=== PATIENT | female | born 1940 | race Asian ===

== ENCOUNTER 2017-07-11 08:17 | Emergency (ER) | payer BC, MEDICARE ==
[2017-07-11 08:41] VITALS: BP 174/88
--- NOTE | 2017-07-11 08:53 | Emergency Department Report ---
HPI - General Chief Complaint: Fall Time Seen by Provider: 07/11/17 08:44 - HPI HPI: 76-year-old female presents to the emergency department by EMS from her ECF at [facility] after having a ground-level fall. Unknown if the fall was witnessed or if there was any loss of consciousness. The patient is currently awake and a by mouth 1. She has history of Alzheimer's dementia, hypertension. She is a poor historian secondary to her dementia. She has a visible hematoma and abrasion over the left eye. Patient herself currently has no complaints and is not aware that she had a fall. Her medication list includes Plavix but no blood thinners. ED Past Medical Hx - Past Medical History Previous Medical History?: Yes Hx Hypertension: Yes Hx Dementia: Yes (Alzheimer's) Additional medical history: Diverticulitis - Surgical History Past Surgical History?: Yes Additional Surgical History: ANNA - Social History Smoking Status: Never Smoker Substance Use Type: None - Medications Home Medications: Home Medications Medication Instructions Recorded Confirmed Last Taken Type Acetaminophen [Tylenol] 500 mg PO Q6HR 08/18/15 08/18/15 Unknown History Aspirin [Aspirin BABY CHEW TAB] 81 mg PO QDAY 08/18/15 08/18/15 Unknown History Cholecalciferol (Vitamin D3) 1,000 unit PO DAILY 08/18/15 08/18/15 Unknown History [Vitamin D-3] Clopidogrel [Plavix] 75 mg PO QDAY 08/18/15 08/18/15 Unknown History Donepezil [Aricept] 10 mg PO QDAY 08/18/15 08/18/15 Unknown History Lisinopril [Zestril TAB] 10 mg PO QDAY 08/18/15 08/18/15 Unknown History Atenolol [Tenormin] 50 mg PO DAILY #30 tablet 08/27/15 Unknown Rx AtorvaSTATin [Lipitor] 20 mg PO QHS #30 tablet 08/27/15 Unknown Rx Bisacodyl [Dulcolax suppos] 10 mg NV QDAY PRN #30 supp.rect 08/27/15 Unknown Rx Calc Carb/Vit D 500 mg-200 Uni 2 each PO BID #30 tablet 08/27/15 Unknown Rx [Oysco D 500 mg-200 Unit] Donepezil [Aricept] 10 mg PO QDAY #30 tablet 08/27/15 Unknown Rx Lisinopril [Zestril TAB] 10 mg PO QDAY #30 tablet 08/27/15 Unknown Rx Memantine [Namenda] 10 mg PO BID #30 tablet 08/27/15 Unknown Rx Potassium Chloride [K-Dur] 10 meq PO QDAY #10 tablet 08/27/15 Unknown Rx Sertraline [Zoloft] 200 mg PO QDAY #30 tablet 08/27/15 Unknown Rx ED Review of Systems ROS: Stated complaint: HEAD INJURY Other details as noted in HPI Comment: Unobtainable due to pts medical conditions Physical Exam - Physical Exam Vital Signs: Vital Signs 07/11/17 08:38 Temperature 98.5 F Pulse Rate 73 Respiratory 16 Rate Blood Pressure 174/88 Physical Exam: GENERAL: The patient is well-developed well-nourished. HENT: Normocephalic. Patient has moist mucous membranes. No septal hematoma. Oropharynx is clear. EYES: Extraocular motions are intact. Pupils equal reactive to light bilaterally. No nystagmus. NECK: Supple. Full range of motion. No tenderness to palpation. CHEST/LUNGS: Clear to auscultation. There is no respiratory distress noted. HEART/CARDIOVASCULAR: Regular. There is no tachycardia. There is no murmur. ABDOMEN: Abdomen is soft, nontender. Patient has normal bowel sounds. There is no abdominal distention. SKIN: Skin is warm and dry. There is some non-expanding swelling over the left eyebrow consistent with a hematoma with a small transverse abrasion going across as well. There is also a few small abrasions to the middle of the forehead. NEURO: Patient is awake and cooperative. She is oriented to person. Follows commands. No facial asymmetry. No pronator drift. MUSCULOSKELETAL: There is no tenderness or deformity. There is no limitation range of motion. BACK: No midline tenderness to palpation, step-off or deformity. ED Course Vital Signs 07/11/17 08:38 Temperature 98.5 F Pulse Rate 73 Respiratory 16 Rate Blood Pressure 174/88 ED Medical Decision Making - Radiology Data Radiology results: report reviewed CT scan of cervical spine: History: Trauma. Findings: The odontoid process and the lateral mass and anterior and posterior arch of L2 is in the occipital condyle appears normal. Normal height of vertebral bodies. Decrease in height of C3-C4, C4-C5, C5-C6 and C6-C7. Sclerotic articular surfaces with peripheral osteophytes suggesting severe cervical spondylosis. No fracture. Normal prevertebral soft tissue. Normal spinous processes. Impression: Severe cervical spondylosis. No evidence of acute fracture. Transcribed By: PTP Dictated By: JOSEFA LAKE MD Electronically Authenticated By: JOSEFA LAKE MD Signed Date/Time: 07/11/17919 CT scan of facial bones: History: Trauma. Findings: The maxillary sinuses are well pneumatized. Mucosal thickening is noted in the right and left maxillary sinus being more pronounced on the right side. No fracture of the wall of the maxillary sinuses. The maxilla appears unremarkable. The zygomatic arches and the mandible appears normal. No fracture of the nasal bone. Grossly bulb and retrobulbar area appears unremarkable. Impression: Sinus disease. No evidence of acute fracture. Transcribed By: JOSE Dictated By: JOSEFA LAKE MD Electronically Authenticated By: JOSEFA LAKE MD Signed Date/Time: 07/11/17916 CT scan of head without IV contrast: History: Trauma. Findings: Ventricles a midline location. Moderate volume loss. Periventricular area of low attenuation. No evidence of acute ischemia, hemorrhage or mass. No extra axial fluid collection. Normal sinuses and mastoid air cells. Normal gadolinium. Impression: No acute intracranial abnormality. Small vessel ischemic changes. Cortical atrophy. Transcribed By: JOSE Dictated By: JOSEFA LAKE MD Electronically Authenticated By: JOSEFA LAKE MD Signed Date/Time: 07/11/1714 - Medical Decision Making Patient presents with what appears to be a ground-level fall. She has some small abrasions and a small left superior orbital non-expanding hematoma. The patient is awake and has no complaints. CT scan of the head, cervical spine and facial bones were all done did not show any signs of fracture, dislocation, subluxation, bleed or any acute process. Family came bedside and says that she is at her normal baseline mental status with her history of dementia. The patient appears happy and is interactive. She is normally able to ambulate without any walker, cane or significant assistance and was able to ambulate throughout the emergency department without any signs of instability. Vital signs stable except for some hypertension. She has been encouraged to get her blood pressure medications at home and try to avoid any caffeine and/or salt. She will be encouraged to return to the emergency Department with any worsening of her symptoms or any acute distress. Otherwise the patient appears safe for discharge back to her [facility]. - Differential Diagnosis fracture, contusion, hematoma, brain bleed Critical Care Time: No Critical care attestation.: If time is entered above; I have spent that time in minutes in the direct care of this critically ill patient, excluding procedure time. ED Disposition Clinical Impression: Fall Qualifiers: Encounter type: initial encounter Qualified Code(s): W19.XXXA - Unspecified fall, initial encounter Hypertension Qualifiers: Hypertension type: essential hypertension Qualified Code(s): I10 - Essential ( primary) hypertension Facial contusion Qualifiers: Encounter type: initial encounter Qualified Code(s): S00.83XA - Contusion of other part of head, initial encounter Facial abrasion Qualifiers: Encounter type: initial encounter Qualified Code(s): S00.81XA - Abrasion of other part of head, initial encounter Head injury Qualifiers: Encounter type: initial encounter Qualified Code(s): S09.90XA - Unspecified injury of head, initial encounter Disposition: DC-01 TO HOME OR SELFCARE Is pt being admited?: No Condition: Stable Instructions: Fall Prevention for Older Adults (ED), Minor Head Injury (ED), Abrasion (ED), Hypertension (ED) Additional Instructions: Please follow up with your primary care physician in the next few days. Return to the emergency department with any worsening of her symptoms or any acute distress. Please notify the physician or bring patient back to the emergency Department with any signs of expanding of the hematoma or any signs of infection of the abrasions, or with any acute distress. Please take your blood pressure medications as prescribed. Try and stay away from foods are high in salt and caffeinated products to help with your elevated blood pressure. Keep a blood pressure log. Referrals: PRIMARY CARE, [Primary Care Provider] - MELANIE Time of Disposition: 11:02
--- NOTE | 2017-07-11 09:33 | Cat Scan Report ---
CT scan of head without IV contrast: History: Trauma. Findings: Ventricles a midline location. Moderate volume loss. Periventricular area of low attenuation. No evidence of acute ischemia, hemorrhage or mass. No extra axial fluid collection. Normal sinuses and mastoid air cells. Normal gadolinium. Impression: No acute intracranial abnormality. Small vessel ischemic changes. Cortical atrophy.
--- NOTE | 2017-07-11 09:36 | Cat Scan Report ---
CT scan of facial bones: History: Trauma. Findings: The maxillary sinuses are well pneumatized. Mucosal thickening is noted in the right and left maxillary sinus being more pronounced on the right side. No fracture of the wall of the maxillary sinuses. The maxilla appears unremarkable. The zygomatic arches and the mandible appears normal. No fracture of the nasal bone. Grossly bulb and retrobulbar area appears unremarkable. Impression: Sinus disease. No evidence of acute fracture.
--- NOTE | 2017-07-11 09:39 | Cat Scan Report ---
CT scan of cervical spine: History: Trauma. Findings: The odontoid process and the lateral mass and anterior and posterior arch of L2 is in the occipital condyle appears normal. Normal height of vertebral bodies. Decrease in height of C3-C4, C4-C5, C5-C6 and C6-C7. Sclerotic articular surfaces with peripheral osteophytes suggesting severe cervical spondylosis. No fracture. Normal prevertebral soft tissue. Normal spinous processes. Impression: Severe cervical spondylosis. No evidence of acute fracture.
== END 2017-07-11 12:09 | disposition home or self-care (01) ==
LOC: ED 08:17
DX: S00.83XA Contusion of other part of head, initial encounter (principal); S09.8XXA Other specified injuries of head, initial encounter; I10 Essential (primary) hypertension; G30.9 Alzheimer's disease, unspecified; F02.80 Dementia in other diseases classified elsewhere, unspecified severity, without behavioral disturbance, psychotic disturbance, mood disturbance, and anxiety; K57.92 Diverticulitis of intestine, part unspecified, without perforation or abscess without bleeding; Z88.8 Allergy status to other drugs, medicaments and biological substances; W17.89XA Other fall from one level to another, initial encounter; Y93.89 Activity, other specified; Y92.89 Other specified places as the place of occurrence of the external cause; Y99.8 Other external cause status
CPT/HCPCS: 70450; 70486; 72125

== ENCOUNTER 2017-11-23 15:23 | Inpatient (IN) | payer SELFPAY ==
[2017-11-23 16:45] LABS: Basophils % (Auto) 0.5 % (0.0-1.8); Eosinophils # (Auto) 0.3 K/mm3 (0.0-0.4); Eosinophils % (Auto) 3.8 % (0.0-4.3); Hematocrit 29.7 % (30.3-42.9); Hemoglobin 10.3 gm/dl (10.1-14.3); Lymphocytes # (Auto) 2.3 K/mm3 (1.2-5.4); Lymphocytes % (Auto) 31.4 % (13.4-35.0); Mean Corpuscular HGB Conc 35 % (30-34); Mean Corpuscular Hemoglobin 32 pg (28-32); Mean Corpuscular Volume 94 fl (79-97); Monocytes # (Auto) 0.9 K/mm3 (0.0-0.8); Monocytes % (Auto) 11.6 % (0.0-7.3); Platelet Count 276 K/mm3 (140-440); Red Blood Count 3.18 M/mm3 (3.65-5.03); Red Cell Distribution Width 14.5 % (13.2-15.2)
[2017-11-23 16:57] LABS: INR 1.08 (0.87-1.13); Partial Thromboplastin Time 30.6 Sec. (24.2-36.6)
[2017-11-23 16:59] LABS: Alanine Aminotransferase 13 units/L (7-56); Albumin 3.7 g/dL (3.9-5); BUN/Creatinine Ratio 44; Blood Urea Nitrogen 22 mg/dL (7-17); Hemolysis Index 1; Lipase 39 units/L (13-60)
[2017-11-23] MEDS ORDERED: NACL 0.9% 1000 ML 1,000 ML IV ONE (17:19)
--- NOTE | 2017-11-23 21:38 | Emergency Department Report ---
ED GI Bleed HPI - General Chief complaint: GI Bleed Stated complaint: RECTAL BLEEDING Time Seen by Provider: 11/23/17 16:58 Source: EMS Mode of arrival: Stretcher Limitations: Altered Mental Status, Physical Limitation - History of Present Illness Initial comments: History is limited by the patient's dementia. Her ECF reports that she had one episode of bloody bowel movements today. So, they sent her to the ER for evaluation. According to the patient's sister, she is acting like her normal self. According to the patient's granddaughter, she has history of diverticulitis and ultimately had a partial colonic resection. She has had this problem before blood in her stool. - Related Data Home Medications Medication Instructions Recorded Confirmed Last Taken Acetaminophen [Tylenol] 1,000 mg PO TID PRN 08/18/15 11/23/17 Unknown Aspirin [Aspirin BABY CHEW TAB] 81 mg PO DAILY 08/18/15 11/23/17 Unknown Cholecalciferol (Vitamin D3) 5,000 unit PO DAILY 08/18/15 11/23/17 Unknown [Vitamin D-3] Clopidogrel [Plavix] 75 mg PO DAILY 08/18/15 11/23/17 Unknown Donepezil [Aricept] 10 mg PO QHS 11/23/17 11/23/17 Unknown Lisinopril [Zestril TAB] 10 mg PO QAM 11/23/17 11/23/17 Unknown QUEtiapine [SEROquel] 200 mg PO DAILY 11/23/17 11/23/17 Unknown Sertraline [Zoloft] 100 mg PO DAILY 11/23/17 11/23/17 Unknown Previous Rx's Medication Instructions Recorded Last Taken Type Atenolol [Tenormin] 50 mg PO DAILY #30 tablet 08/27/15 Unknown Rx AtorvaSTATin [Lipitor] 20 mg PO QHS #30 tablet 08/27/15 Unknown Rx Memantine [Namenda] 10 mg PO BID #30 tablet 08/27/15 Unknown Rx Allergies Allergy/AdvReac Type Severity Reaction Status Date / Time esomeprazole magnesium AdvReac Unknown Verified 08/17/15 23:57 [From Nexium] naproxen AdvReac Unknown Verified 08/17/15 23:57 ED Review of Systems ROS: Stated complaint: RECTAL BLEEDING Other details as noted in HPI Comment: Unobtainable due to pts medical conditions ED Past Medical Hx - Past Medical History Hx Hypertension: Yes Hx GERD: Yes Hx Dementia: Yes (Alzheimer's) Additional medical history: Diverticulitis - Surgical History Additional Surgical History: ANNA - Social History Smoking Status: Unknown if ever smoked - Medications Home Medications: Home Medications Medication Instructions Recorded Confirmed Last Taken Type Acetaminophen [Tylenol] 1,000 mg PO TID PRN 08/18/15 11/23/17 Unknown History Aspirin [Aspirin BABY CHEW TAB] 81 mg PO DAILY 08/18/15 11/23/17 Unknown History Cholecalciferol (Vitamin D3) 5,000 unit PO DAILY 08/18/15 11/23/17 Unknown History [Vitamin D-3] Clopidogrel [Plavix] 75 mg PO DAILY 08/18/15 11/23/17 Unknown History Atenolol [Tenormin] 50 mg PO DAILY #30 tablet 08/27/15 11/23/17 Unknown Rx AtorvaSTATin [Lipitor] 20 mg PO QHS #30 tablet 08/27/15 11/23/17 Unknown Rx Memantine [Namenda] 10 mg PO BID #30 tablet 08/27/15 11/23/17 Unknown Rx Donepezil [Aricept] 10 mg PO QHS 11/23/17 11/23/17 Unknown History Lisinopril [Zestril TAB] 10 mg PO QAM 11/23/17 11/23/17 Unknown History QUEtiapine [SEROquel] 200 mg PO DAILY 11/23/17 11/23/17 Unknown History Sertraline [Zoloft] 100 mg PO DAILY 11/23/17 11/23/17 Unknown History ED Physical Exam - General Limitations: Altered Mental Status, Physical Limitation General appearance: alert, in no apparent distress - Head Head exam: Present: atraumatic, normocephalic - Eye Eye exam: Present: normal appearance - ENT ENT exam: Present: mucous membranes moist - Neck Neck exam: Present: normal inspection - Respiratory Respiratory exam: Present: normal lung sounds bilaterally. Absent: respiratory distress - Cardiovascular Cardiovascular Exam: Present: regular rate, normal rhythm. Absent: systolic murmur, diastolic murmur, rubs, gallop - GI/Abdominal GI/Abdominal exam: Present: soft, tenderness (right sided), normal bowel sounds. Absent: guarding, rebound - Rectal Rectal exam: Present: heme (+) stool, bloody stool. Absent: hemorrhoids - Extremities Exam Extremities exam: Present: normal inspection - Back Exam Back exam: Present: normal inspection - Neurological Exam Neurological exam: Present: alert, altered - Psychiatric Psychiatric exam: Present: normal affect, normal mood - Skin Skin exam: Present: warm, dry, intact, normal color. Absent: rash ED Course Vital Signs 11/23/17 11/23/17 11/23/17 15:24 19:01 21:10 Temperature 98.5 F Pulse Rate 82 82 82 Respiratory 20 18 18 Rate Blood Pressure 150/71 Blood Pressure 129/81 157/81 [Left] O2 Sat by Pulse 99 100 96 Oximetry 11/24/17 00:13 Temperature Pulse Rate 74 Respiratory 16 Rate Blood Pressure Blood Pressure 145/74 [Left] O2 Sat by Pulse 95 Oximetry ED Medical Decision Making - Lab Data Result diagrams: 11/25/17 21:58 11/24/17 05:24 - Medical Decision Making 76-year-old female with dementia, multiple comorbidities and presents to the ER with concerns for abdominal pain and rectal bleeding. Prior signs stable on presentation. Lab work is in CT are negative for pathology. Patient did have hematochezia on exam. Given her age and the fact she is a poor historian, I will admit the patient for further monitoring and likely GI evaluation. Patient remained hemodynamically stable in the ER. Does not require blood at this time. Critical care attestation.: If time is entered above; I have spent that time in minutes in the direct care of this critically ill patient, excluding procedure time. ED Disposition Clinical Impression: GI bleed Disposition: OP ADMIT IP TO THIS HOSP Is pt being admited?: Yes Does the pt Need Aspirin: No Condition: Stable
--- NOTE | 2017-11-23 21:56 | Cat Scan Report ---
FINAL REPORT PROCEDURE: CT abdomen and pelvis with contrast. TECHNIQUE: Computerized axial tomography of the abdomen and pelvis was performed after the IV injection of iodinated nonionic contrast. HISTORY: Right lower quadrant abdominal pain. COMPARISON: CT abdomen and pelvis 08/18/2015. FINDINGS: There is some subsegmental atelectasis in both lower lobes. There are some small cysts in both lower lobes. The heart size is at the upper limit of normal. The liver, pancreas and spleen appear normal. The gallbladder is present. There is no biliary dilatation. The adrenal glands are not enlarged. There are bilateral renal cysts. There is dense atherosclerotic calcification in the abdominal aorta and common iliac arteries. There is no retroperitoneal adenopathy. There are numerous diverticula in the descending colon and sigmoid colon. There are no signs of acute diverticulitis. A normal appendix is visible. The bladder is unremarkable. The uterus has been removed. The regional skeleton appears intact. There is severe disc space narrowing at L4-5 and L5-S1. There is grade 1 spondylolisthesis at L4-5. IMPRESSION: Bilateral renal cysts. Atherosclerosis. Moderate colonic diverticulosis. No evidence of acute disease in the abdomen or pelvis.
[2017-11-23 22:20] LABS: Bilirubin,Urine NEG (Negative); Blood,Urine NEG (Negative); Color,Urine Yellow (Yellow); Mucus,Urine FEW /HPF; Protein,Urine <15 mg/dL mg/dL (Negative); Urobilinogen,Urine < 2.0 mg/dL (<2.0); WBC,Urine < 1.0 /HPF (0.0-6.0)
[2017-11-23] MEDS ORDERED: SODIUM CHLORIDE FLUSH SYRINGE 10 ML IV PRN (23:13)
[2017-11-23] MEDS ORDERED: TYLENOL PO PRN (23:13)
[2017-11-23] MEDS ORDERED: ZOFRAN IV PRN (23:13)
--- NOTE | 2017-11-23 23:15 | History and Physical Report ---
History of Present Illness Date of examination: 11/23/17 History of present illness: 76-year-old woman with history of dementia, hypertension, anxiety from assisted living facility was sent to the snf because she had to episodes of blood per rectum. Review of system is unobtainable PAST MEDICAL HISTORY:dementia, hypertension PAST SURGICAL HISTORY: Unknown SOCIAL HISTORY: Unknown FAMILY HISTORY: Unknown Medications and Allergies Allergies Allergy/AdvReac Type Severity Reaction Status Date / Time esomeprazole magnesium AdvReac Unknown Verified 08/17/15 23:57 [From Nexium] naproxen AdvReac Unknown Verified 08/17/15 23:57 Home Medications Medication Instructions Recorded Confirmed Last Taken Type Acetaminophen [Acetaminophen TAB] 1,000 mg PO TID PRN 08/18/15 11/23/17 Unknown History Cholecalciferol (Vitamin D3) 5,000 unit PO DAILY 08/18/15 11/23/17 Unknown History [Vitamin D3] AtorvaSTATin [Lipitor] 20 mg PO QHS #30 tablet 08/27/15 11/23/17 Unknown Rx Memantine [Namenda] 10 mg PO BID #30 tablet 08/27/15 11/23/17 Unknown Rx Donepezil [Aricept] 10 mg PO QHS 11/23/17 11/23/17 Unknown History Lisinopril [Zestril TAB] 10 mg PO QAM 11/23/17 11/23/17 Unknown History QUEtiapine [SEROquel] 200 mg PO DAILY 11/23/17 11/23/17 Unknown History Sertraline [Zoloft] 100 mg PO DAILY 11/23/17 11/23/17 Unknown History Famotidine [Pepcid] 20 mg PO BID #60 tablet 11/27/17 Unknown Rx Exam - Physical Exam Narrative exam: Gen. appearance: Patient lying in bed, no apparent distress HEENT: Normocephalic, atraumatic, pupils equally round and reactive to light, extraocular movement intact, and no sclericterus,. No JVD or thyromegaly or nodule,neck supple, no carotid bruit ,mucous membranes moist, no exudate or erythema Heart: S1, S2, regular rate and rhythm Lungs: Clear to auscultation bilaterally, breathing comfortable Abdomen: Positive bowel sounds, nondistended, no organomegaly Extremity: No edema, cyanosis, clubbing Skin: No rash, nodules, warm, dry Neuro difficult to assess - Constitutional Vitals: Temp Pulse Resp BP Pulse Ox 98.5 F 82 18 157/81 96 11/23/17 15:24 11/23/17 21:10 11/23/17 21:10 11/23/17 21:10 11/23/17 21:10 Results - Labs CBC & Chem 7: 11/27/17 11:12 11/26/17 09:51 Labs: Abnormal lab results 11/23/17 11/23/17 11/23/17 Range/Units 16:26 16:26 21:55 RBC 3.18 L (3.65-5.03) M/mm3 Hct 29.7 L (30.3-42.9) % MCHC 35 H (30-34) % Rogers % (Auto) 11.6 H (0.0-7.3) % Rogers # 0.9 H (0.0-0.8) K/mm3 BUN 22 H (7-17) mg/dL Creatinine 0.5 L (0.7-1.2) mg/dL Albumin 3.7 L (3.9-5) g/dL Ur Specific [place] 1.042 H (1.003-1.030) Assessment and Plan Assessment Lower GI bleed, most likely diverticular bleed Dementia Anxiety Admit to medicine Placed on bowel rest, start IV fluid, check serial hemoglobin Consult GI, continue appropriate outpatient medication DVT prophylaxis with SCD
[2017-11-23] MEDS ORDERED: NACL 0.45% 1000 ML 1,000 ML IV SCH (23:45)
[2017-11-24 00:19] LABS: Hematocrit 30.4 % (30.3-42.9); Hemoglobin 10.3 gm/dl (10.1-14.3)
[2017-11-24 06:19] LABS: Basophils % (Auto) 0.5 % (0.0-1.8); Eosinophils # (Auto) 0.3 K/mm3 (0.0-0.4); Eosinophils % (Auto) 3.3 % (0.0-4.3); Hematocrit 31.1 % (30.3-42.9); Hemoglobin 10.4 gm/dl (10.1-14.3); Lymphocytes # (Auto) 2.8 K/mm3 (1.2-5.4); Lymphocytes % (Auto) 35.9 % (13.4-35.0); Mean Corpuscular HGB Conc 34 % (30-34); Mean Corpuscular Hemoglobin 32 pg (28-32); Mean Corpuscular Volume 95 fl (79-97); Monocytes # (Auto) 0.9 K/mm3 (0.0-0.8); Monocytes % (Auto) 12.1 % (0.0-7.3); Platelet Count 297 K/mm3 (140-440); Red Blood Count 3.29 M/mm3 (3.65-5.03); Red Cell Distribution Width 14.5 % (13.2-15.2)
[2017-11-24 06:48] LABS: BUN/Creatinine Ratio 32; Blood Urea Nitrogen 16 mg/dL (7-17); Calcium 9.2 mg/dL (8.4-10.2); Hemolysis Index 20
--- NOTE | 2017-11-24 09:30 | Gastroenterology Consultation ---
Addendum entered and electronically signed by URVASHI WYLIE NP 11/24/17 10: 00: Patient allergic to Nexium. Will start on Pepcid IV instead of PPI. Original Note: <URVASHI WYLIE - Last Filed: 11/24/17 09:41> History of Present Illness - Reason for Consult Consult date: 11/24/17 GI bleed Requesting physician: LAURA VILLAGOMEZ - History of Present Illness Patient is a 76 y/o female with PMH of advanced dementia/Alzheimer's, GERD, HTN , A-fib, diverticulitis, and TIA who was brought [facility] from [facility] due to episodes of blood per rectum to which GI has has been consulted. She is previously known to our service from a consult in 2015 for a diverticular bleed (s/p embolization of the marginal artery/sigmoid branches). This morning patient was resting in bed w/o acute distress. Patient confused and unable to provider history. History obtained via chart review. Upon exam, autumn/maroon bloody stool was noted in diaper. No evidence of abd pain or N/V. On Plavix and ASA at home. EGD 2013 revealed esophagitis with bleed. Last colonoscopy unknown. Tried to call patient daughter (Mynor) to discuss plan of care with no answer. Past History Past Medical History: arrhythmia (A-fib), hypertension, other (advanced dementia /Alzheimer's, diverticulitis, diverticular bleed, and TIA ) Past Surgical History: Other (s/p embolization of the marginal artery/sigmoid branches) Social history: other ([facility] resident) Medications and Allergies Allergies Allergy/AdvReac Type Severity Reaction Status Date / Time esomeprazole magnesium AdvReac Unknown Verified 08/17/15 23:57 [From Nexium] naproxen AdvReac Unknown Verified 08/17/15 23:57 Home Medications Medication Instructions Recorded Confirmed Last Taken Type Acetaminophen [Tylenol] 1,000 mg PO TID PRN 08/18/15 11/23/17 Unknown History Aspirin [Aspirin BABY CHEW TAB] 81 mg PO DAILY 08/18/15 11/23/17 Unknown History Cholecalciferol (Vitamin D3) 5,000 unit PO DAILY 08/18/15 11/23/17 Unknown History [Vitamin D-3] Clopidogrel [Plavix] 75 mg PO DAILY 08/18/15 11/23/17 Unknown History Atenolol [Tenormin] 50 mg PO DAILY #30 tablet 08/27/15 11/23/17 Unknown Rx AtorvaSTATin [Lipitor] 20 mg PO QHS #30 tablet 08/27/15 11/23/17 Unknown Rx Memantine [Namenda] 10 mg PO BID #30 tablet 08/27/15 11/23/17 Unknown Rx Donepezil [Aricept] 10 mg PO QHS 11/23/17 11/23/17 Unknown History Lisinopril [Zestril TAB] 10 mg PO QAM 11/23/17 11/23/17 Unknown History QUEtiapine [SEROquel] 200 mg PO DAILY 11/23/17 11/23/17 Unknown History Sertraline [Zoloft] 100 mg PO DAILY 11/23/17 11/23/17 Unknown History Active Meds: Active Medications Acetaminophen (Tylenol) 650 mg PO Q4H PRN PRN Reason: Pain MILD(1-3)/Fever >100.5/RODGERS Sodium Chloride (Nacl 0.45% 1000 Ml) 1,000 mls @ 75 mls/hr IV DIRECT ALENA Last Admin: 11/24/17 05:18 Dose: 75 mls/hr Ondansetron HCl (Zofran) 4 mg IV Q8H PRN PRN Reason: Nausea And Vomiting Pneumococcal Polyvalent Vaccine (Pneumovax 23) 0.5 ml IM .ONCE ONE Stop: 11/24/17 12:01 Sodium Chloride (Sodium Chloride Flush Syringe 10 Ml) 10 ml IV BID ALENA Sodium Chloride (Sodium Chloride Flush Syringe 10 Ml) 10 ml IV PRN PRN PRN Reason: LINE FLUSH Review of Systems - Review of Systems ROS unobtainable: due to mental status Exam - Constitutional Vital Signs: Temp Pulse Resp BP Pulse Ox 98.5 F 74 16 145/74 95 11/23/17 15:24 11/24/17 00:13 11/24/17 00:13 11/24/17 00:13 11/24/17 00:13 General appearance: no acute distress, other (confused) - Respiratory Respiratory: bilateral: CTA (anterior) - Cardiovascular Rhythm: other (irregular) Heart Sounds: Present: S1 & S2 - Gastrointestinal General gastrointestinal: Present: soft, non-distended, normal bowel sounds - Neurologic Neurological: disoriented - Labs CBC & Chem 7: 11/24/17 05:24 11/24/17 05:24 Lab Results: Laboratory Results - last 24 hr 11/23/17 11/23/17 11/23/17 16:26 16:26 16:26 WBC 7.4 RBC 3.18 L Hgb 10.3 Hct 29.7 L MCV 94 MCH 32 MCHC 35 H RDW 14.5 Plt Count 276 Lymph % (Auto) 31.4 [place] % (Auto) 11.6 H Eos % (Auto) 3.8 Baso % (Auto) 0.5 Lymph # 2.3 [place] # 0.9 H Eos # 0.3 Baso # 0.0 Seg Neutrophils % 52.7 Seg Neutrophils # 3.9 PT 14.6 INR 1.08 APTT 30.6 Sodium 141 Potassium 4.3 Chloride 103.5 Carbon Dioxide 27 Anion Gap 15 BUN 22 H Creatinine 0.5 L Estimated GFR > 60 BUN/Creatinine Ratio 44 Glucose 96 Calcium 9.0 Total Bilirubin 0.20 AST 19 ALT 13 Alkaline Phosphatase 59 Total Protein 6.6 Albumin 3.7 L Albumin/Globulin Ratio 1.3 Lipase 39 Urine Color Urine Turbidity Urine pH Ur Specific [place] Urine Protein Urine Glucose (UA) Urine Ketones Urine Blood Urine Nitrite Urine Bilirubin Urine Urobilinogen Ur Leukocyte Esterase Urine WBC (Auto) Urine RBC (Auto) U Epithel Cells (Auto) Urine Mucus Blood Type Antibody Screen 11/23/17 11/23/17 11/23/17 16:26 21:55 23:23 WBC RBC Hgb 10.3 Hct 30.4 MCV MCH MCHC RDW Plt Count Lymph % (Auto) [place] % (Auto) Eos % (Auto) Baso % (Auto) Lymph # [place] # Eos # Baso # Seg Neutrophils % Seg Neutrophils # PT INR APTT Sodium Potassium Chloride Carbon Dioxide Anion Gap BUN Creatinine Estimated GFR BUN/Creatinine Ratio Glucose Calcium Total Bilirubin AST ALT Alkaline Phosphatase Total Protein Albumin Albumin/Globulin Ratio Lipase Urine Color Yellow Urine Turbidity Clear Urine pH 6.0 Ur Specific [place] 1.042 H Urine Protein <15 mg/dl Urine Glucose (UA) Neg Urine Ketones Neg Urine Blood Neg Urine Nitrite Neg Urine Bilirubin Neg Urine Urobilinogen < 2.0 Ur Leukocyte Esterase Neg Urine WBC (Auto) < 1.0 Urine RBC (Auto) 1.0 U Epithel Cells (Auto) 1.0 Urine Mucus Few Blood Type AB POSITIVE Antibody Screen Negative 11/24/17 11/24/17 05:24 05:24 WBC 7.7 RBC 3.29 L Hgb 10.4 Hct 31.1 MCV 95 MCH 32 MCHC 34 RDW 14.5 Plt Count 297 Lymph % (Auto) 35.9 H [place] % (Auto) 12.1 H Eos % (Auto) 3.3 Baso % (Auto) 0.5 Lymph # 2.8 [place] # 0.9 H Eos # 0.3 Baso # 0.0 Seg Neutrophils % 48.2 Seg Neutrophils # 3.7 PT INR APTT Sodium 140 Potassium 4.7 Chloride 102.4 Carbon Dioxide 25 Anion Gap 17 BUN 16 Creatinine 0.5 L Estimated GFR > 60 BUN/Creatinine Ratio 32 Glucose 105 H Calcium 9.2 Total Bilirubin AST ALT Alkaline Phosphatase Total Protein Albumin Albumin/Globulin Ratio Lipase Urine Color Urine Turbidity Urine pH Ur Specific [place] Urine Protein Urine Glucose (UA) Urine Ketones Urine Blood Urine Nitrite Urine Bilirubin Urine Urobilinogen Ur Leukocyte Esterase Urine WBC (Auto) Urine RBC (Auto) U Epithel Cells (Auto) Urine Mucus Blood Type Antibody Screen Assessment and Plan 1.GI bleed -HGB 10.4 -continue to monitor H/H and transfuse as needed -hold blood thinning medications -BM x 1 this am with dark maroon bloody stool -currently HD stable -EGD 2013 revealed esophagitis -h/o diverticular bleed in 2016 found with positive bleeding scan requiring embolization by IR of marginal artery/sigmoid branches -etiology unclear -will order stat bleeding scan -start on PPI -continue supportive care -further recommendations to follow <VIDAL MONTEIRO - Last Filed: 11/24/17 12:06> Medications and Allergies Active Meds: Active Medications Acetaminophen (Tylenol) 650 mg PO Q4H PRN PRN Reason: Pain MILD(1-3)/Fever >100.5/RODGERS Famotidine (Pepcid) 20 mg IV BID ALENA Sodium Chloride (Nacl 0.45% 1000 Ml) 1,000 mls @ 75 mls/hr IV DIRECT ALENA Last Admin: 11/24/17 05:18 Dose: 75 mls/hr Lorazepam (Ativan) 2 mg IV Q4H PRN PRN Reason: Agitation Ondansetron HCl (Zofran) 4 mg IV Q8H PRN PRN Reason: Nausea And Vomiting Pneumococcal Polyvalent Vaccine (Pneumovax 23) 0.5 ml IM .ONCE ONE Stop: 11/24/17 12:01 Sodium Chloride (Sodium Chloride Flush Syringe 10 Ml) 10 ml IV BID ALENA Sodium Chloride (Sodium Chloride Flush Syringe 10 Ml) 10 ml IV PRN PRN PRN Reason: LINE FLUSH Exam - Constitutional Vital Signs: Temp Pulse Resp BP Pulse Ox 97.6 F 89 20 141/81 97 11/24/17 08:00 11/24/17 08:00 11/24/17 08:00 11/24/17 08:00 11/24/17 08:00 - Labs CBC & Chem 7: 11/24/17 11:11 11/24/17 05:24 Lab Results: Laboratory Results - last 24 hr 11/23/17 11/23/17 11/23/17 16:26 16:26 16:26 WBC 7.4 RBC 3.18 L Hgb 10.3 Hct 29.7 L MCV 94 MCH 32 MCHC 35 H RDW 14.5 Plt Count 276 Lymph % (Auto) 31.4 [place] % (Auto) 11.6 H Eos % (Auto) 3.8 Baso % (Auto) 0.5 Lymph # 2.3 [place] # 0.9 H Eos # 0.3 Baso # 0.0 Seg Neutrophils % 52.7 Seg Neutrophils # 3.9 PT 14.6 INR 1.08 APTT 30.6 Sodium 141 Potassium 4.3 Chloride 103.5 Carbon Dioxide 27 Anion Gap 15 BUN 22 H Creatinine 0.5 L Estimated GFR > 60 BUN/Creatinine Ratio 44 Glucose 96 Calcium 9.0 Total Bilirubin 0.20 AST 19 ALT 13 Alkaline Phosphatase 59 Total Protein 6.6 Albumin 3.7 L Albumin/Globulin Ratio 1.3 Lipase 39 Urine Color Urine Turbidity Urine pH Ur Specific [place] Urine Protein Urine Glucose (UA) Urine Ketones Urine Blood Urine Nitrite Urine Bilirubin Urine Urobilinogen Ur Leukocyte Esterase Urine WBC (Auto) Urine RBC (Auto) U Epithel Cells (Auto) Urine Mucus Blood Type Antibody Screen 11/23/17 11/23/17 11/23/17 16:26 21:55 23:23 WBC RBC Hgb 10.3 Hct 30.4 MCV MCH MCHC RDW Plt Count Lymph % (Auto) [place] % (Auto) Eos % (Auto) Baso % (Auto) Lymph # [place] # Eos # Baso # Seg Neutrophils % Seg Neutrophils # PT INR APTT Sodium Potassium Chloride Carbon Dioxide Anion Gap BUN Creatinine Estimated GFR BUN/Creatinine Ratio Glucose Calcium Total Bilirubin AST ALT Alkaline Phosphatase Total Protein Albumin Albumin/Globulin Ratio Lipase Urine Color Yellow Urine Turbidity Clear Urine pH 6.0 Ur Specific [place] 1.042 H Urine Protein <15 mg/dl Urine Glucose (UA) Neg Urine Ketones Neg Urine Blood Neg Urine Nitrite Neg Urine Bilirubin Neg Urine Urobilinogen < 2.0 Ur Leukocyte Esterase Neg Urine WBC (Auto) < 1.0 Urine RBC (Auto) 1.0 U Epithel Cells (Auto) 1.0 Urine Mucus Few Blood Type AB POSITIVE Antibody Screen Negative 11/24/17 11/24/17 11/24/17 05:24 05:24 11:11 WBC 7.7 RBC 3.29 L Hgb 10.4 11.1 Hct 31.1 33.4 MCV 95 MCH 32 MCHC 34 RDW 14.5 Plt Count 297 Lymph % (Auto) 35.9 H [place] % (Auto) 12.1 H Eos % (Auto) 3.3 Baso % (Auto) 0.5 Lymph # 2.8 [place] # 0.9 H Eos # 0.3 Baso # 0.0 Seg Neutrophils % 48.2 Seg Neutrophils # 3.7 PT INR APTT Sodium 140 Potassium 4.7 Chloride 102.4 Carbon Dioxide 25 Anion Gap 17 BUN 16 Creatinine 0.5 L Estimated GFR > 60 BUN/Creatinine Ratio 32 Glucose 105 H Calcium 9.2 Total Bilirubin AST ALT Alkaline Phosphatase Total Protein Albumin Albumin/Globulin Ratio Lipase Urine Color Urine Turbidity Urine pH Ur Specific [place] Urine Protein Urine Glucose (UA) Urine Ketones Urine Blood Urine Nitrite Urine Bilirubin Urine Urobilinogen Ur Leukocyte Esterase Urine WBC (Auto) Urine RBC (Auto) U Epithel Cells (Auto) Urine Mucus Blood Type Antibody Screen Impression/Plan - Impression Impression: The patient was seen and examined and the care plan discussed as above. Await bleeding scan. Conservative care will be planned if bleeding subsides. Thank you for asking us to see her in consultation. Vidal Monteiro MD
[2017-11-24] MEDS ORDERED: FLUSH HEPARIN IV ONE (10:22)
[2017-11-24] MEDS ORDERED: ATIVAN IV PRN (11:22)
[2017-11-24 11:51] LABS: Hematocrit 33.4 % (30.3-42.9); Hemoglobin 11.1 gm/dl (10.1-14.3)
[2017-11-24] MEDS ORDERED: PNEUMOVAX 23 IM ONE (12:00)
[2017-11-24] MEDS: PEPCID IV SCH ×2 (12:03→22:28)
[2017-11-24] MEDS: SODIUM CHLORIDE FLUSH SYRINGE 10 ML IV SCH (12:04)
--- NOTE | 2017-11-24 14:29 | Nuclear Medicine Report ---
NUCLEAR MEDICINE GI BLEEDING SCAN INDICATION: GI bleeding. Altered mental status, dementia. COMPARISON: Yesterday's CT. FINDINGS: Following uneventful intravenous administration of 22 mCi of technetium 99m tagged red blood cells, initial flow phase images and subsequent multiple static images obtained. The flow phase and blood pool images demonstrate focal radiotracer accumulation along the mid to distal transverse colon up to the splenic flexure, demonstrating increase in activity over time though no significant peristaltic progression along the descending colon identified. CONCLUSION: Active GI bleed suspected along the mid to distal transverse colon up to the splenic flexure, as detailed above. Please correlate. Thank you for the opportunity to participate in this patient's care.
--- NOTE | 2017-11-24 15:00 | Progress Note ---
Assessment and Plan Lower GI bleed, most likely diverticular bleed Dementia Anxiety Severe Protein Calorie Malnutrition - Placed on bowel rest, started IV fluid, check serial hemoglobin - Consulted GI, s/p GI bleed scan today, cont PPI - DVT prophylaxis with SCD, supportive care, consult nutrition Brief History: 76-year-old woman with history of dementia, hypertension, anxiety from assisted living facility was sent to the long term because she had to episodes of blood per rectum. Radiological data: Abdominal pelvis CT GI bleed skin Hospitalist Physical exam: GENERAL: Elderly malnourished -[place] female lying on bed appeared to be in no discomfort. HEENT: Normocephalic. Atraumatic. No conjunctival congestion or icterus. Patient has moist mucous membranes. NECK: Supple. Trachea midline. CHEST/LUNGS: Clear to auscultated bilaterally, breathing nonlabored. No wheezes crackles or rhonchi. HEART/CARDIOVASCULAR: Regular in rate and rhythm. S1 and S2 positive. ABDOMEN: Abdomen is soft, nontender. Patient has normal bowel sounds. SKIN: There is no rash. Warm and dry. NEURO: No focal motor deficit. Appears lethargic does not follow command. MUSCULOSKELETAL: No joint effusion or tenderness. EXTRIMITY: No edema, no cyanosis or clubbing. PSYCH: Unable to obtain. Subjective Date of service: 11/24/17 Interval history: Patient seen and examined. Medical records and medication list reviewed. No acute event overnight noted by the RN. Patient received Ativan prior to GI bleeding scan as she was not cooperative Now during my encounter appears lethargic Objective - Constitutional Vitals: Vital Signs - 12hr 11/24/17 11/24/17 04:12 08:00 Temperature 97.7 F 97.6 F Pulse Rate 89 Respiratory 18 20 Rate Blood Pressure 149/81 Blood Pressure 141/81 [Left] O2 Sat by Pulse 97 Oximetry - Labs CBC & Chem 7: 11/25/17 05:13 11/24/17 05:24 Labs: Abnormal lab results 11/23/17 11/23/17 11/23/17 Range/Units 16:26 16:26 21:55 RBC 3.18 L (3.65-5.03) M/mm3 Hct 29.7 L (30.3-42.9) % MCHC 35 H (30-34) % Lymph % (Auto) (13.4-35.0) % [place] % (Auto) 11.6 H (0.0-7.3) % [place] # 0.9 H (0.0-0.8) K/mm3 BUN 22 H (7-17) mg/dL Creatinine 0.5 L (0.7-1.2) mg/dL Glucose (65-100) mg/dL Albumin 3.7 L (3.9-5) g/dL Ur Specific [place] 1.042 H (1.003-1.030) 11/24/17 11/24/17 Range/Units 05:24 05:24 RBC 3.29 L (3.65-5.03) M/mm3 Hct (30.3-42.9) % MCHC (30-34) % Lymph % (Auto) 35.9 H (13.4-35.0) % [place] % (Auto) 12.1 H (0.0-7.3) % [place] # 0.9 H (0.0-0.8) K/mm3 BUN (7-17) mg/dL Creatinine 0.5 L (0.7-1.2) mg/dL Glucose 105 H (65-100) mg/dL Albumin (3.9-5) g/dL Ur Specific [place] (1.003-1.030)
[2017-11-24] MEDS: D5NS 1,000 ML IV SCH (20:07)
[2017-11-24 21:26] LABS: Hematocrit 32.7 % (30.3-42.9); Hemoglobin 10.9 gm/dl (10.1-14.3)
[2017-11-25] MEDS: SODIUM CHLORIDE FLUSH SYRINGE 10 ML IV SCH ×3 (02:50→23:02)
[2017-11-25 07:08] LABS: Hematocrit 31.5 % (30.3-42.9); Hemoglobin 10.6 gm/dl (10.1-14.3)
[2017-11-25] MEDS ORDERED: TYLENOL PO PRN (08:00)
[2017-11-25] MEDS ORDERED: NON-FORMULARY (Cholecalciferol (Vitamin D3) [Vitamin D3] 5,000 UNIT) PO SCH (10:00)
[2017-11-25] MEDS: VITAMIN D3 PO SCH (10:31)
[2017-11-25] MEDS: ZESTRIL PO SCH (10:37)
[2017-11-25] MEDS: ZOLOFT PO SCH (10:37)
[2017-11-25] MEDS: PEPCID IV SCH (10:38)
--- NOTE | 2017-11-25 10:41 | Gastroenterology Progress Note ---
<INESSAURVASHI NorwoodThierno - Last Filed: 11/25/17 11:11> Assessment and Plan 1.GI bleed -HGB 10.6-stable -continue to monitor H/H and transfuse as needed -hold blood thinning medications -BM x 2 yesterday with one bloody stool and one without, no active signs of bleeding this am -HD stable -EGD 2013 revealed esophagitis -h/o diverticular bleed in 2016 found with positive bleeding scan requiring embolization by IR of marginal artery/sigmoid branches -s/p bleeding scan yesterday- results positive for GI bleed suspected along the mid to distal transverse colon up to the splenic flexure -etiology-likey diverticular -continue pepcid and supportive care -will discuss plan of care with Dr. Monteiro to include possible colonoscopy vs conservative management -further recommendations to follow Subjective Date of service: 11/25/17 Principal diagnosis: BPR, GI bleed Interval history: Patient w/o acute distress. BM x 2 overnight (one with bloody stool and one without). No active signs of bleeding this am. Objective - Constitutional Vitals: Temp Pulse Resp BP Pulse Ox 97.4 F L 71 16 150/89 96 11/25/17 07:45 11/25/17 07:45 11/25/17 07:45 11/25/17 07:45 11/25/17 07:45 General appearance: no acute distress - Respiratory Respiratory: bilateral: CTA (anterior) - Cardiovascular Rhythm: regular Heart Sounds: Present: S1 & S2 - Gastrointestinal General gastrointestinal: Present: soft, non-tender, non-distended, normal bowel sounds - Neurologic Neurological: disoriented - Labs CBC & Chem 7: 11/25/17 05:13 11/24/17 05:24 Labs: Laboratory Results - last 24 hr 11/24/17 11/24/17 11/24/17 11:11 21:09 22:41 Hgb 11.1 10.9 Hct 33.4 32.7 POC Glucose 105 11/25/17 11/25/17 05:13 07:06 Hgb 10.6 Hct 31.5 POC Glucose 103 <VIDAL MONTEIRO - Last Filed: 11/25/17 12:12> Assessment and Plan The patient was seen and examined. She has advanced dementia and has no understanding of her condition. I have placed a call to her daughter and left a message to discuss the level of care desired. She is not a good candidate for colonscopy (and probably not surgery if a malignancy were found) and I am not certain she will take or tolerate the prep. H&H is stable. Diverticular bleeding is the most likely cause based on colonoscopy 2 years ago. Await response and communication with family. Will not plan colonoscopy at the present time. Vidal Monteiro MD Objective - Constitutional Vitals: Temp Pulse Resp BP Pulse Ox 97.4 F L 71 16 150/89 96 11/25/17 07:45 11/25/17 10:37 11/25/17 07:45 11/25/17 10:37 11/25/17 07:45 - Labs CBC & Chem 7: 11/25/17 05:13 11/24/17 05:24 Labs: Laboratory Results - last 24 hr 11/24/17 11/24/17 11/25/17 21:09 22:41 05:13 Hgb 10.9 10.6 Hct 32.7 31.5 POC Glucose 105 11/25/17 07:06 Hgb Hct POC Glucose 103
[2017-11-25] MEDS: NAMENDA PO SCH ×2 (10:43→23:01)
[2017-11-25] MEDS: D5NS 1,000 ML IV SCH (13:17)
[2017-11-25 14:53] LABS: Hematocrit 31.7 % (30.3-42.9); Hemoglobin 10.5 gm/dl (10.1-14.3)
--- NOTE | 2017-11-25 18:24 | Progress Note ---
Assessment and Plan /Lower GI bleed, most likely diverticular bleed - Placed on bowel rest, started IV fluid, check serial hemoglobin - Consulted GI, cont PPI -continue to monitor H/H and transfuse if hb <7 -per RN had BM x 2 yesterday with one bloody stool and one without, -h/o diverticular bleed in 2016 found with positive bleeding scan requiring embolization by IR of marginal artery/sigmoid branches -s/p bleeding scan yesterday revealed positive for GI bleed suspected along the mid to distal transverse colon up to the splenic flexure /Dementia, supportive care, /Anxiety, stable now /Severe Protein Calorie Malnutrition - consulted nutrition - DVT prophylaxis with SCD, Brief History: 76-year-old woman with history of dementia, hypertension, anxiety from assisted living facility was sent to the senior living because she had to episodes of blood per rectum. Radiological data: Abdominal pelvis CT GI bleed scan Hospitalist Physical exam: GENERAL: Elderly malnourished -[place] female lying on bed appeared to be in no discomfort. HEENT: Normocephalic. Atraumatic. No conjunctival congestion or icterus. Patient has moist mucous membranes. NECK: Supple. Trachea midline. CHEST/LUNGS: Clear to auscultated bilaterally, breathing nonlabored. No wheezes crackles or rhonchi. HEART/CARDIOVASCULAR: Regular in rate and rhythm. S1 and S2 positive. ABDOMEN: Abdomen is soft, nontender. Patient has normal bowel sounds. SKIN: There is no rash. Warm and dry. NEURO: No focal motor deficit. Appears alert, follow command. MUSCULOSKELETAL: No joint effusion or tenderness. EXTRIMITY: No edema, no cyanosis or clubbing. PSYCH: Unable to obtain. Subjective Date of service: 11/25/17 Principal diagnosis: BPR, GI bleed Interval history: Patient seen and examined. Medical records and medication list reviewed. No acute event overnight noted by the RN. discussed with family at bedside patient much more alert today but demented Objective - Constitutional Vitals: Vital Signs - 12hr 11/25/17 11/25/17 11/25/17 07:45 10:00 10:37 Temperature 97.4 F L Pulse Rate 71 71 Respiratory 16 Rate Respiratory 14 Rate [Anterior Abdomen] Blood Pressure 150/89 150/89 O2 Sat by Pulse 96 Oximetry 11/25/17 11:34 Temperature 97.4 F L Pulse Rate 119 H Respiratory 16 Rate Respiratory Rate [Anterior Abdomen] Blood Pressure 123/66 O2 Sat by Pulse 99 Oximetry - Labs CBC & Chem 7: 11/25/17 21:58 11/24/17 05:24 Labs: Abnormal lab results 11/25/17 11/25/17 Range/Units 11:42 16:12 POC Glucose 112 H 131 H (70-105)
[2017-11-25 22:09] LABS: Hematocrit 29.5 % (30.3-42.9)
[2017-11-25] MEDS: PEPCID PO SCH (23:01)
[2017-11-25] MEDS: ARICEPT PO SCH (23:01)
[2017-11-26 10:18] LABS: Hemoglobin 11.2 gm/dl (10.1-14.3); Mean Corpuscular HGB Conc 33 % (30-34); Mean Corpuscular Hemoglobin 31 pg (28-32); Mean Corpuscular Volume 96 fl (79-97); Platelet Count 309 K/mm3 (140-440); Red Blood Count 3.57 M/mm3 (3.65-5.03); Red Cell Distribution Width 14.3 % (13.2-15.2)
[2017-11-26 10:34] LABS: BUN/Creatinine Ratio 23; Blood Urea Nitrogen 14 mg/dL (7-17); Calcium 9.6 mg/dL (8.4-10.2); Hemolysis Index 83
--- NOTE | 2017-11-26 10:49 | Gastroenterology Progress Note ---
Assessment and Plan - Patient Problems (1) GI bleed Current Visit: Yes Status: Acute Plan to address problem: Likely had a diverticular bleed, which has not completely subsided. H&H improving. History of diverticulosis by prior evaluation in 2016. Will plan conservative care in absence of family contact. I left a message yesterday. Conservative care is very reasonable in this setting given her advanced dementia. Will s/o at this point. Please re consult as needed. Thank you. (2) Diverticulosis large intestine w/o perforation or abscess w/bleeding Current Visit: No Status: Acute (3) Dementia Current Visit: No Status: Chronic Subjective Date of service: 11/26/17 Principal diagnosis: BPR, GI bleed Interval history: Confused. Patient can give no history. Objective - Exam Narrative Exam: No bleeding overnight by direct discussion with the nurse. - Constitutional Vitals: Temp Pulse Resp BP Pulse Ox 97.5 F L 74 16 131/70 96 11/26/17 07:41 11/26/17 10:14 11/26/17 07:41 11/26/17 07:41 11/26/17 10:14 General appearance: no acute distress - Respiratory Respiratory effort: normal Respiratory: bilateral: CTA - Cardiovascular Rhythm: regular - Gastrointestinal General gastrointestinal: Present: soft, non-tender, non-distended, normal bowel sounds - Neurologic Neurological: disoriented - Psychiatric Psychiatric: no appropriate mood/affect - Labs CBC & Chem 7: 11/26/17 09:51 11/26/17 09:51 Labs: Laboratory Results - last 24 hr 11/25/17 11/25/17 11/25/17 11:42 14:26 16:12 WBC RBC Hgb 10.5 Hct 31.7 MCV MCH MCHC RDW Plt Count Sodium Potassium Chloride Carbon Dioxide Anion Gap BUN Creatinine Estimated GFR BUN/Creatinine Ratio Glucose POC Glucose 112 H 131 H Calcium 11/25/17 11/25/17 11/26/17 21:58 22:27 09:51 WBC 6.1 RBC 3.57 L Hgb 10.0 L 11.2 Hct 29.5 L 34.0 MCV 96 MCH 31 MCHC 33 RDW 14.3 Plt Count 309 Sodium Potassium Chloride Carbon Dioxide Anion Gap BUN Creatinine Estimated GFR BUN/Creatinine Ratio Glucose POC Glucose 82 Calcium 11/26/17 09:51 WBC RBC Hgb Hct MCV MCH MCHC RDW Plt Count Sodium 142 Potassium 4.1 Chloride 104.6 Carbon Dioxide 24 Anion Gap 18 BUN 14 Creatinine 0.6 L Estimated GFR > 60 BUN/Creatinine Ratio 23 Glucose 126 H POC Glucose Calcium 9.6
--- NOTE | 2017-11-26 15:01 | Progress Note ---
Assessment and Plan /Lower GI bleed, most likely diverticular bleed - Placed on bowel rest, started IV fluid, check serial hemoglobin - Consulted GI, cont PPI -continue to monitor H/H and transfuse if hb <7 -per RN had blood stained BM x one -h/o diverticular bleed in 2016 found with positive bleeding scan requiring embolization by IR of marginal artery/sigmoid branches -s/p bleeding scan 11/24/17 revealed positive for GI bleed suspected along the mid to distal transverse colon up to the splenic flexure - Plan for conservative management for now if no further bleeding episode- /Dementia, supportive care, /Anxiety, stable now /Severe Protein Calorie Malnutrition - consulted nutrition - DVT prophylaxis with SCD, Brief History: 76-year-old woman with history of dementia, hypertension, anxiety from assisted living facility was sent to the retirement because she had to episodes of blood per rectum. Radiological data: Abdominal pelvis CT GI bleed scan Hospitalist Physical exam: GENERAL: Elderly malnourished -Maltese female lying on bed appeared to be in no discomfort. HEENT: Normocephalic. Atraumatic. No conjunctival congestion or icterus. Patient has moist mucous membranes. NECK: Supple. Trachea midline. CHEST/LUNGS: Clear to auscultated bilaterally, breathing nonlabored. No wheezes crackles or rhonchi. HEART/CARDIOVASCULAR: Regular in rate and rhythm. S1 and S2 positive. ABDOMEN: Abdomen is soft, nontender. Patient has normal bowel sounds. SKIN: There is no rash. Warm and dry. NEURO: No focal motor deficit. Appears alert, follow command. MUSCULOSKELETAL: No joint effusion or tenderness. EXTRIMITY: No edema, no cyanosis or clubbing. PSYCH: Unable to obtain. Subjective Date of service: 11/26/17 Principal diagnosis: BPR, GI bleed Interval history: Patient seen and examined. Medical records and medication list reviewed. No acute event overnight noted by the RN. patient much more alert today but demented Objective - Constitutional Vitals: Vital Signs - 12hr 11/26/17 11/26/17 11/26/17 05:31 07:41 10:14 Temperature 97.5 F L Pulse Rate 88 74 Respiratory 16 Rate Blood Pressure 131/70 O2 Sat by Pulse 98 96 Oximetry 11/26/17 11/26/17 12:43 13:02 Temperature 97.6 F Pulse Rate 73 Respiratory 18 Rate Blood Pressure 141/82 O2 Sat by Pulse 94 Oximetry - Labs CBC & Chem 7: 11/26/17 09:51 11/26/17 09:51 Labs: Abnormal lab results 11/25/17 11/25/17 11/26/17 Range/Units 16:12 21:58 09:51 RBC 3.57 L (3.65-5.03) M/mm3 Hgb 10.0 L (10.1-14.3) gm/dl Hct 29.5 L (30.3-42.9) % Creatinine (0.7-1.2) mg/dL Glucose (65-100) mg/dL POC Glucose 131 H (70-105) 11/26/17 Range/Units 09:51 RBC (3.65-5.03) M/mm3 Hgb (10.1-14.3) gm/dl Hct (30.3-42.9) % Creatinine 0.6 L (0.7-1.2) mg/dL Glucose 126 H (65-100) mg/dL POC Glucose (70-105)
[2017-11-26] MEDS: PEPCID PO SCH ×2 (15:27→23:28)
[2017-11-26] MEDS: SODIUM CHLORIDE FLUSH SYRINGE 10 ML IV SCH ×2 (15:27→23:29)
[2017-11-26] MEDS: NAMENDA PO SCH ×2 (15:27→23:29)
[2017-11-26] MEDS: ZESTRIL PO SCH (15:28)
[2017-11-26] MEDS: ZOLOFT PO SCH (15:28)
[2017-11-26] MEDS: VITAMIN D3 PO SCH (15:28)
[2017-11-26] MEDS: ARICEPT PO SCH (23:29)
[2017-11-27] MEDS: APRESOLINE IV PRN (05:53)
[2017-11-27] MEDS: PEPCID PO SCH ×2 (10:33→21:35)
[2017-11-27] MEDS: ZOLOFT PO SCH (10:33)
[2017-11-27] MEDS: VITAMIN D3 PO SCH (10:33)
[2017-11-27] MEDS: ZESTRIL PO SCH (10:34)
[2017-11-27] MEDS: NAMENDA PO SCH ×2 (10:34→21:35)
[2017-11-27] MEDS: SODIUM CHLORIDE FLUSH SYRINGE 10 ML IV SCH ×2 (10:35→21:35)
--- NOTE | 2017-11-27 11:58 | Discharge Summary ---
Providers - Providers Date of Admission: 11/23/17 23:13 Date of discharge: 11/28/17 Attending physician: JOIE WEATHERS 11/23/17 23:13 Consult to Physician [CONS] Routine Comment: Consulting Provider: RYAN MEZA Physician Instructions: Reason For Exam: bpr 11/25/17 07:21 Consult to Dietitian/Nutrition [CONS] Routine Physician Instructions: Reason For Exam: Reason for Consult: Malnutrition 11/25/17 07:26 Speech Therapy Evaluation and Treat [CONS] Routine Reason For Exam: aspiration Primary care physician: [facility]ER Hospitalization Condition: Stable Hospital course: Brief History: 76-year-old woman with history of dementia, hypertension, anxiety from assisted living facility [facility] had to episodes of blood per rectum. Discharge diagnosis: /Lower GI bleed, most likely diverticular bleed - Placed on bowel rest, started IV fluid, check serial hemoglobin - Consulted GI, cont PPI -continue to monitor H/H and transfuse if hb <7 -per RN had blood stained BM x one -h/o diverticular bleed in 2015 found with positive bleeding scan requiring embolization by IR of marginal artery/sigmoid branches -s/p bleeding scan 11/24/17 revealed positive for GI bleed suspected along the mid to distal transverse colon up to the splenic flexure - Plan for conservative management for now if no further bleeding episode /Hypoglycemia, likely from poor oral intake - placed on d5, resolved /Dementia, supportive care, /Anxiety, stable now /Severe Protein Calorie Malnutrition - consulted nutrition - DVT prophylaxis with SCD, Radiological data: Abdominal pelvis CT GI bleed scan Hospitalist Physical exam: GENERAL: Elderly malnourished -Swazi female lying on bed appeared to be in no discomfort. HEENT: Normocephalic. Atraumatic. No conjunctival congestion or icterus. Patient has moist mucous membranes. NECK: Supple. Trachea midline. CHEST/LUNGS: Clear to auscultated bilaterally, breathing nonlabored. No wheezes crackles or rhonchi. HEART/CARDIOVASCULAR: Regular in rate and rhythm. S1 and S2 positive. ABDOMEN: Abdomen is soft, nontender. Patient has normal bowel sounds. SKIN: There is no rash. Warm and dry. NEURO: No focal motor deficit. Appears alert, follow command. MUSCULOSKELETAL: No joint effusion or tenderness. EXTRIMITY: No edema, no cyanosis or clubbing. PSYCH: Unable to obtain. Disposition: DC/TX-06 HOME UNDER HOME HL Time spent for discharge: 32 minutes Core Measure Documentation - Palliative Care Palliative Care/ Comfort Measures: Not Applicable - Core Measures Any of the following diagnoses?: none Exam - Constitutional Vitals: Temp Pulse Resp BP Pulse Ox 97.5 F L 90 16 198/94 95 11/27/17 04:29 11/27/17 10:00 11/27/17 04:29 11/27/17 05:53 11/27/17 08:15 Plan Activity: up only with assistance Weight Bearing Status: Non-Weight Bearing Diet: per dietitian instruction Additional Instructions: f/u with GI in one week Follow up with: PRIMARY CARE, [Primary Care Provider] - 3-5 Days Forms: Discharge Signature Page Prescriptions: Famotidine [Pepcid] 20 mg PO BID #60 tablet
[2017-11-27 12:14] LABS: Hematocrit 32.5 % (30.3-42.9); Hemoglobin 11.1 gm/dl (10.1-14.3)
[2017-11-27] MEDS ORDERED: D50W (25GM) Syringe IV ONE ×3 (12:17→19:00)
[2017-11-27] MEDS ORDERED: D10W 1,000 ML IV SCH (21:00)
[2017-11-27] MEDS: ARICEPT PO SCH (21:35)
[2017-11-28] MEDS: APRESOLINE IV PRN (01:36)
[2017-11-28] MEDS: PEPCID PO SCH (11:14)
[2017-11-28] MEDS: NAMENDA PO SCH (11:14)
[2017-11-28] MEDS: SODIUM CHLORIDE FLUSH SYRINGE 10 ML IV SCH (11:14)
[2017-11-28] MEDS: VITAMIN D3 PO SCH (11:15)
[2017-11-28] MEDS: ZESTRIL PO SCH (11:15)
[2017-11-28] MEDS: ZOLOFT PO SCH (11:15)
--- NOTE | 2017-11-28 12:41 | Progress Note ---
Assessment and Plan /Lower GI bleed, most likely diverticular bleed - Placed on bowel rest, started IV fluid, check serial hemoglobin - Consulted GI, cont PPI -continue to monitor H/H and transfuse if hb <7 -per RN had blood stained BM x one -h/o diverticular bleed in 2016 found with positive bleeding scan requiring embolization by IR of marginal artery/sigmoid branches -s/p bleeding scan 11/24/17 revealed positive for GI bleed suspected along the mid to distal transverse colon up to the splenic flexure - Plan for conservative management for now if no further bleeding episode /Hypoglycemia, likely from poor oral intake - place on d5, monitor clinically /Dementia, supportive care, /Anxiety, stable now /Severe Protein Calorie Malnutrition - consulted nutrition - DVT prophylaxis with SCD, Brief History: 76-year-old woman with history of dementia, hypertension, anxiety from assisted living facility [facility] had to episodes of blood per rectum. Radiological data: Abdominal pelvis CT GI bleed scan Hospitalist Physical exam: GENERAL: Elderly malnourished -Bahraini female lying on bed appeared to be in no discomfort. HEENT: Normocephalic. Atraumatic. No conjunctival congestion or icterus. Patient has moist mucous membranes. NECK: Supple. Trachea midline. CHEST/LUNGS: Clear to auscultated bilaterally, breathing nonlabored. No wheezes crackles or rhonchi. HEART/CARDIOVASCULAR: Regular in rate and rhythm. S1 and S2 positive. ABDOMEN: Abdomen is soft, nontender. Patient has normal bowel sounds. SKIN: There is no rash. Warm and dry. NEURO: No focal motor deficit. Appears alert, follow command. MUSCULOSKELETAL: No joint effusion or tenderness. EXTRIMITY: No edema, no cyanosis or clubbing. PSYCH: Unable to obtain. Subjective Date of service: 11/27/17 Principal diagnosis: BPR, GI bleed Interval history: Patient seen and examined. Medical records and medication list reviewed. No acute event overnight noted by the RN. patient much more alert today but demented Poor oral intake per RN report, BG was as low as 60s called daughter but she was unavailable by phone Objective - Constitutional Vitals: Vital Signs - 12hr 11/28/17 11/28/17 01:36 03:08 Temperature 97.6 F Pulse Rate 60 83 Respiratory 20 Rate Blood Pressure 181/97 115/52 O2 Sat by Pulse 98 Oximetry - Labs CBC & Chem 7: 11/27/17 11:12 11/26/17 09:51 Labs: Abnormal lab results 11/27/17 11/27/17 11/27/17 Range/Units 13:02 17:19 18:33 POC Glucose 138 H 61 L 52 L (70-105) 11/27/17 11/28/17 11/28/17 Range/Units 18:58 01:37 06:54 POC Glucose 128 H 113 H 116 H (70-105)
[2017-11-28 14:38] VITALS: BP 134/57
== END 2017-11-28 18:10 | disposition home health service (06) | DRG 377 ==
LOC: ED 15:23 → 4A 23:13
PROVIDERS: ADMIT Internal Medicine; ATTEND Internal Medicine
DX: K57.31 Diverticulosis of large intestine without perforation or abscess with bleeding (principal); E43 Unspecified severe protein-calorie malnutrition; Z68.1 Body mass index [BMI] 19.9 or less, adult; I10 Essential (primary) hypertension; K21.9 Gastro-esophageal reflux disease without esophagitis; G30.9 Alzheimer's disease, unspecified; F02.80 Dementia in other diseases classified elsewhere, unspecified severity, without behavioral disturbance, psychotic disturbance, mood disturbance, and anxiety; I48.91 Unspecified atrial fibrillation; E16.2 Hypoglycemia, unspecified; F41.9 Anxiety disorder, unspecified; Z91.018 Allergy to other foods; Z88.8 Allergy status to other drugs, medicaments and biological substances; Z86.73 Personal history of transient ischemic attack (TIA), and cerebral infarction without residual deficits
CPT/HCPCS: 36415; 74177; 78278; 80048; 80053; 81001; 82962; 83690; 85014; 85018; 85025; 85027; 85610; 85730; 86850; 86900; 86901; 90732; 93005; 93010; A9270-GY; A9560; J0360; J1642; J2060; J7030; J7042; Q9967

== ENCOUNTER 2017-12-16 13:16 | Inpatient (IN) | payer SELFPAY ==
--- NOTE | 2017-12-16 14:39 | Emergency Department Report ---
HPI - General Chief Complaint: Altered Mental Status Time Seen by Provider: 12/16/17 13:38 - HPI HPI: 77-year-old female presents to the emergency department by EMS from her long-term at [facility] with complaint of an unresponsive episode. The long-term staff told EMS that she was at the table eating when she suddenly had a blank stare effaced, stopped eating and then stopped responding to staff. The patient then later became more alert and back her baseline. She did not receive anything for her symptoms prior to presentation. She does have a past medical history of Alzheimer's dementia, GERD, hypertension. The patient herself is currently confused, unsure where she is, why she was sent here, and has no current complaints. ED Past Medical Hx - Past Medical History Hx Hypertension: Yes Hx GERD: Yes Hx Dementia: Yes (Alzheimer's) Additional medical history: Diverticulitis - Surgical History Additional Surgical History: ANNA - Social History Smoking Status: Unknown if ever smoked - Medications Home Medications: Home Medications Medication Instructions Recorded Confirmed Last Taken Type Acetaminophen [Acetaminophen TAB] 1,000 mg PO TID PRN 08/18/15 11/23/17 Unknown History Cholecalciferol (Vitamin D3) 5,000 unit PO DAILY 08/18/15 11/23/17 Unknown History [Vitamin D3] AtorvaSTATin [Lipitor] 20 mg PO QHS #30 tablet 08/27/15 11/23/17 Unknown Rx Memantine [Namenda] 10 mg PO BID #30 tablet 08/27/15 11/23/17 Unknown Rx Donepezil [Aricept] 10 mg PO QHS 11/23/17 11/23/17 Unknown History Lisinopril [Zestril TAB] 10 mg PO QAM 11/23/17 11/23/17 Unknown History QUEtiapine [SEROquel] 200 mg PO DAILY 11/23/17 11/23/17 Unknown History Sertraline [Zoloft] 100 mg PO DAILY 11/23/17 11/23/17 Unknown History Famotidine [Pepcid] 20 mg PO BID #60 tablet 11/27/17 Unknown Rx ED Review of Systems ROS: Stated complaint: AMS Other details as noted in HPI Comment: Unobtainable due to pts medical conditions Physical Exam - Physical Exam Vital Signs: Vital Signs 12/16/17 13:28 Pulse Rate 78 Respiratory 16 Rate Blood Pressure 116/54 Physical Exam: GENERAL: The patient is well-developed well-nourished. HENT: Normocephalic. Atraumatic. Patient has moist mucous membranes. EYES: Extraocular motions are intact. Pupils equal reactive to light bilaterally. NECK: Supple. Trachea is midline. CHEST/LUNGS: Clear to auscultation. There is no respiratory distress noted. HEART/CARDIOVASCULAR: Regular. There is no tachycardia. There is no murmur. ABDOMEN: Abdomen is soft, nontender. Patient has normal bowel sounds. There is no abdominal distention. SKIN: Skin is warm and dry. NEURO: The patient is awake but confused. Withdraws from painful stimuli. Follows some commands. MUSCULOSKELETAL: There is no tenderness or deformity. There is no evidence of acute injury. ED Course Vital Signs 12/16/17 13:28 Pulse Rate 78 Respiratory 16 Rate Blood Pressure 116/54 ED Medical Decision Making - Lab Data Result diagrams: 12/16/17 14:53 12/16/17 14:53 - EKG Data -: EKG Interpreted by Mo EKG shows normal: sinus rhythm, axis, intervals (prolonged QTC), QRS complexes, ST-T waves (nonspecific T waves) Rate: normal - EKG Data When compared to previous EKG there are: previous EKG unavailable Interpretation: other (sinus rhythm, prolonged QTC, nonspecific T waves, no ST elevation AL) - Radiology Data Radiology results: report reviewed EXAM: CT HEAD/BRAIN WO CON HISTORY: Altered Mental Status TECHNIQUE: Standard unenhanced CT of the head at 5.0 millimeter axial increments. PRIORS: None. FINDINGS: The ventricular system is normal in size and configuration. There is central atrophy with minimal small vessel ischemic changes in the surrounding periventricular white matter. There is no evidence for mass lesion, mass effect, midline shift, acute intracranial hemorrhage, or acute ischemia/ infarction. No evidence for acute skull fracture is seen. No abnormality in the overlying scalp soft tissues is seen. Visualized paranasal sinuses are clear. IMPRESSION: Central atrophy and small vessel ischemic changes. No acute intracranial process noted. Transcribed By: ZURDO Dictated By: YOSEPH HAMILTON MD Electronically Authenticated By: YOSEPH HAMILTON MD Signed Date/Time: 12/16/17 3176 - Medical Decision Making This patient was sent in by her ECF after she had some unresponsive episode but apparently returned back to baseline mental status. However the patient does have a history of Alzheimer's dementia. CT of the head did not show any bleed, shift, mass or any other acute process. EKG did not show any signs of ST elevation AL or any significant dysrhythmia. Labs appeared mostly unremarkable and have not shown any etiology of her symptoms. Still waiting on a urine sample for urinalysis for possible UTI. Vital signs stable throughout her ED course thus far. Patient's differential includes seizure, TIA, sequela of her dementia, UTI. She will be admitted to the hospital for further evaluation and treatment and has been accepted for admission by the hospitalist, Dr. Rodriguez. - Differential Diagnosis seizure, TIA, sequela of her dementia, UTI Critical Care Time: No Critical care attestation.: If time is entered above; I have spent that time in minutes in the direct care of this critically ill patient, excluding procedure time. ED Disposition Clinical Impression: Physical deconditioning, Unresponsive episode Dementia Qualifiers: Dementia type: Alzheimer's disease Alzheimer's disease onset: unspecified onset Dementia behavioral disturbance: without behavioral disturbance Qualified Code(s): G30.9 - Alzheimer's disease, unspecified; F02.80 - Dementia in other diseases classified elsewhere without behavioral disturbance Disposition: -09 OP ADMIT IP TO THIS HOSP Is pt being admited?: Yes Condition: Stable Referrals: PRIMARY CARE, [Primary Care Provider] - 3-5 Days Time of Disposition: 19:59
[2017-12-16 15:15] LABS: Basophils % (Auto) 0.5 % (0.0-1.8); Eosinophils % (Auto) 0.7 % (0.0-4.3); Hematocrit 29.9 % (30.3-42.9); Hemoglobin 10.4 gm/dl (10.1-14.3); Lymphocytes # (Auto) 0.9 K/mm3 (1.2-5.4); Lymphocytes % (Auto) 17.2 % (13.4-35.0); Mean Corpuscular HGB Conc 35 % (30-34); Mean Corpuscular Hemoglobin 32 pg (28-32); Mean Corpuscular Volume 93 fl (79-97); Monocytes # (Auto) 0.6 K/mm3 (0.0-0.8); Monocytes % (Auto) 10.1 % (0.0-7.3); Platelet Count 293 K/mm3 (140-440); Red Blood Count 3.22 M/mm3 (3.65-5.03); Red Cell Distribution Width 14.1 % (13.2-15.2)
[2017-12-16 15:31] LABS: Alanine Aminotransferase 17 units/L (7-56); Albumin 3.9 g/dL (3.9-5); BUN/Creatinine Ratio 24; Blood Urea Nitrogen 19 mg/dL (7-17); Calcium 9.6 mg/dL (8.4-10.2); Hemolysis Index 0
[2017-12-16 15:50] LABS: Partial Thromboplastin Time TNR Sec. (24.2-36.6)
[2017-12-16 16:00] LABS: INR TNR (0.87-1.13)
[2017-12-16 16:19] LABS: INR 0.99 (0.87-1.13)
[2017-12-16 16:20] LABS: Partial Thromboplastin Time 24.9 Sec. (24.2-36.6)
--- NOTE | 2017-12-16 18:04 | Cat Scan Report ---
FINAL REPORT EXAM: CT HEAD/BRAIN WO CON HISTORY: Altered Mental Status TECHNIQUE: Standard unenhanced CT of the head at 5.0 millimeter axial increments. PRIORS: None. FINDINGS: The ventricular system is normal in size and configuration. There is central atrophy with minimal small vessel ischemic changes in the surrounding periventricular white matter. There is no evidence for mass lesion, mass effect, midline shift, acute intracranial hemorrhage, or acute ischemia/ infarction. No evidence for acute skull fracture is seen. No abnormality in the overlying scalp soft tissues is seen. Visualized paranasal sinuses are clear. IMPRESSION: Central atrophy and small vessel ischemic changes. No acute intracranial process noted.
[2017-12-16] MEDS ORDERED: TYLENOL PO PRN ×2 (21:21→21:23)
[2017-12-16] MEDS ORDERED: ZOFRAN IV PRN (21:21)
[2017-12-16] MEDS ORDERED: SODIUM CHLORIDE FLUSH SYRINGE 10 ML IV PRN (21:21)
[2017-12-16] MEDS ORDERED: NACL 0.9% 1000 ML 1,000 ML IV SCH (22:00)
[2017-12-17] MEDS: PEPCID PO SCH ×3 (01:00→23:09)
[2017-12-17] MEDS: NAMENDA PO SCH ×3 (01:00→23:09)
[2017-12-17] MEDS: ARICEPT PO SCH ×2 (01:00→23:08)
[2017-12-17] MEDS: SODIUM CHLORIDE FLUSH SYRINGE 10 ML IV SCH ×3 (01:01→23:09)
--- NOTE | 2017-12-17 08:12 | Event Note ---
Date: 12/16/17 See dictated H/p in reports
--- NOTE | 2017-12-17 09:01 | History and Physical Report ---
CHIEF COMPLAINT: Unresponsive episode. HISTORY OF PRESENT ILLNESS: The patient is a 77-year-old -[place] female who is sent in from [facility] for an unresponsive episode. The patient was at the table eating and suddenly had a blank stare and slumped over. Recovered completely to baseline after a few minutes. Has history of dementia, gastroesophageal reflux disease, and hypertension. The patient is alert and oriented x 1 at the time of my examination. PAST MEDICAL HISTORY: Hypertension, gastroesophageal reflux disease, dementia, diverticulitis. PAST SURGICAL HISTORY: Unavailable. SOCIAL HISTORY: Does not smoke. FAMILY HISTORY: Hypertension. CURRENT MEDICATIONS: Lisinopril 10 mg once a day, Aricept, Namenda and Seroquel also. No medications on the chart. REVIEW OF SYSTEMS: Significant for altered sensorium for a few minutes after that recurred to baseline. Otherwise, review of systems is negative. PHYSICAL EXAMINATION: GENERAL: Elderly female, cooperative, alert during my examination. VITAL SIGNS: Blood pressure is 132/81, temperature is 97.8, pulse is 69, respirations are 16. HEENT: Unremarkable. Pupils equal and reactive. NECK: Supple, no lymphadenopathy, no thyromegaly. LUNGS: Clear to auscultation and percussion. Good air entry. CARDIOVASCULAR: S1, S2 heard. No gallop, no murmur, no rub. Apical impulse in left fifth intercostal space and midclavicular line. ABDOMEN: Soft and benign. No hepatosplenomegaly. No guarding, no rigidity. Hernial orifices are normal. EXTREMITIES: Good pedal pulses. No pedal edema. CENTRAL NERVOUS SYSTEM: Alert and oriented x 4. NEUROLOGIC: Nonfocal. SKIN: Normal. LABORATORY DATA: Significant for a white count of 5500, H of 10.4 and 29.9, platelet count of 293,000. Sodium is 143, potassium is 4.3, BUN and creatinine are 19 and 0.8, glucose is 114. RADIOLOGICAL DATA: Head CT is negative. ASSESSMENT AND PLAN: 1. Syncope. We will get echocardiogram, Lexiscan, carotid duplex scan. 2. Altered mental status. IV fluids for the time being. 3. Dementia. Continue Aricept and Namenda. 4. Hypertension. Continue lisinopril. 5. Hyperlipidemia. Continue atorvastatin 20 mg p.o. daily. 6. Depression. Continue Zoloft 100 mg once a day. 7. Deep venous thrombosis prophylaxis, heparin 5000 q.12h. [facility]# [id number] BARRY/NTS
[2017-12-17] MEDS ORDERED: NON-FORMULARY (Cholecalciferol (Vitamin D3) [Vitamin D3] 5,000 UNIT) PO SCH (10:00)
[2017-12-17] MEDS: VITAMIN D3 PO SCH (11:44)
[2017-12-17] MEDS: ZESTRIL PO SCH (11:45)
[2017-12-17] MEDS: ZOLOFT PO SCH (11:45)
[2017-12-17] MEDS: HEPARIN SUB-Q SCH ×2 (11:46→23:09)
--- NOTE | 2017-12-17 16:51 | Progress Note ---
Assessment and Plan Assessment and plan: Syncope Hospitalist Physical - Physical exam Narrative exam: Gen:Not in acute distress, lying in bed HEENT:Normocephalic atraumatic Neck: Supple, no JVD Lungs:clear to auscultation bilaterally, no rhonchi, no wheeze Heart:S1 and S2 reg, no murmurs, rubs or gallop Abd: Soft, non tender, non distended, normal bowel sounds Ext: No edema, clubbing or cyanosis Neuro: Lethargic, has dementia - Constitutional Vitals: Temp Pulse Resp BP Pulse Ox 97.6 F 84 20 109/67 94 12/17/17 14:24 12/17/17 14:24 12/17/17 14:24 12/17/17 15:44 12/17/17 14:24 Results - Labs CBC & Chem 7: 12/16/17 14:53 12/16/17 14:53 Labs: Laboratory Last Values WBC 5.5 K/mm3 (4.5-11.0) 12/16/17 14:53 RBC 3.22 M/mm3 (3.65-5.03) L 12/16/17 14:53 Hgb 10.4 gm/dl (10.1-14.3) 12/16/17 14:53 Hct 29.9 % (30.3-42.9) L 12/16/17 14:53 MCV 93 fl (79-97) 12/16/17 14:53 MCH 32 pg (28-32) 12/16/17 14:53 MCHC 35 % (30-34) H 12/16/17 14:53 RDW 14.1 % (13.2-15.2) 12/16/17 14:53 Plt Count 293 K/mm3 (140-440) 12/16/17 14:53 Lymph % (Auto) 17.2 % (13.4-35.0) 12/16/17 14:53 [place] % (Auto) 10.1 % (0.0-7.3) H 12/16/17 14:53 Eos % (Auto) 0.7 % (0.0-4.3) 12/16/17 14:53 Baso % (Auto) 0.5 % (0.0-1.8) 12/16/17 14:53 Lymph # 0.9 K/mm3 (1.2-5.4) L 12/16/17 14:53 [place] # 0.6 K/mm3 (0.0-0.8) 12/16/17 14:53 Eos # 0.0 K/mm3 (0.0-0.4) 12/16/17 14:53 Baso # 0.0 K/mm3 (0.0-0.1) 12/16/17 14:53 Seg Neutrophils % 71.5 % (40.0-70.0) H 12/16/17 14:53 Seg Neutrophils # 3.9 K/mm3 (1.8-7.7) 12/16/17 14:53 PT 13.6 Sec. (12.2-14.9) 12/16/17 16:03 INR 0.99 (0.87-1.13) 12/16/17 16:03 APTT 24.9 Sec. (24.2-36.6) 12/16/17 16:03 Sodium 143 mmol/L (137-145) 12/16/17 14:53 Potassium 4.3 mmol/L (3.6-5.0) 12/16/17 14:53 Chloride 104.1 mmol/L (98-107) 12/16/17 14:53 Carbon Dioxide 27 mmol/L (22-30) 12/16/17 14:53 Anion Gap 16 mmol/L 12/16/17 14:53 BUN 19 mg/dL (7-17) H 12/16/17 14:53 Creatinine 0.8 mg/dL (0.7-1.2) 12/16/17 14:53 Estimated GFR > 60 ml/min 12/16/17 14:53 BUN/Creatinine Ratio 24 % 12/16/17 14:53 Glucose 114 mg/dL (65-100) H 12/16/17 14:53 Calcium 9.6 mg/dL (8.4-10.2) 12/16/17 14:53 Total Bilirubin 0.20 mg/dL (0.1-1.2) 12/16/17 14:53 AST 20 units/L (5-40) 12/16/17 14:53 ALT 17 units/L (7-56) 12/16/17 14:53 Alkaline Phosphatase 79 units/L (35-129) 12/16/17 14:53 Ammonia 34.0 umol/L (25-60) 12/16/17 14:53 Troponin T < 0.010 ng/mL (0.00-0.029) 12/17/17 11:51 Total Protein 6.9 g/dL (6.3-8.2) 12/16/17 14:53 Albumin 3.9 g/dL (3.9-5) 12/16/17 14:53 Albumin/Globulin Ratio 1.3 % 12/16/17 14:53 TSH 2.550 mlU/mL (0.270-4.200) 12/16/17 14:13
[2017-12-17] MEDS ORDERED: NACL 0.9% 1000 ML 1,000 ML IV SCH (17:00)
[2017-12-18] MEDS: NAMENDA PO SCH (09:44)
[2017-12-18] MEDS: ZOLOFT PO SCH (09:45)
[2017-12-18] MEDS: VITAMIN D3 PO SCH (09:45)
[2017-12-18] MEDS: PEPCID PO SCH (09:46)
[2017-12-18] MEDS: SODIUM CHLORIDE FLUSH SYRINGE 10 ML IV SCH (09:47)
[2017-12-18] MEDS: HEPARIN SUB-Q SCH (09:49)
--- NOTE | 2017-12-18 10:19 | Discharge Summary ---
Providers - Providers Date of Admission: 12/16/17 21:21 Date of discharge: 12/18/17 Attending physician: GABBY BAXTER Primary care physician: YONNY CORDON MD Hospitalization Condition: Fair Disposition: DC-01 TO HOME OR SELFCARE Core Measure Documentation - Palliative Care Palliative Care/ Comfort Measures: Not Applicable - Core Measures Any of the following diagnoses?: none Exam - Constitutional Vitals: Temp Pulse Resp BP Pulse Ox 98.0 F 78 20 109/74 99 12/18/17 07:55 12/18/17 07:20 12/18/17 07:55 12/18/17 07:55 12/18/17 07:20 Plan Diet: low fat, low cholesterol, low salt Additional Instructions: 1.Follow up with PCP in 1 week Follow up with: YONNY CORDON MD [Primary Care Provider] - 3-5 Days
[2017-12-18] MEDS: ZESTRIL PO SCH (10:28)
[2017-12-18 15:24] VITALS: BP 109/67
== END 2017-12-18 18:53 | DRG 312 ==
LOC: ED 13:16 → 2B-ACE 21:21
PROVIDERS: ADMIT Internal Medicine; ATTEND Internal Medicine
DX: R55 Syncope and collapse (principal); K21.9 Gastro-esophageal reflux disease without esophagitis; I10 Essential (primary) hypertension; G30.9 Alzheimer's disease, unspecified; F02.80 Dementia in other diseases classified elsewhere, unspecified severity, without behavioral disturbance, psychotic disturbance, mood disturbance, and anxiety; E78.5 Hyperlipidemia, unspecified; F32.9 Major depressive disorder, single episode, unspecified; Z82.49 Family history of ischemic heart disease and other diseases of the circulatory system; Z79.899 Other long term (current) drug therapy
CPT/HCPCS: 36415; 70450; 80053; 82140; 84443; 84484; 85025; 85610; 85730; 93005; 93010; 93306; 93880; A9270-GY; J1644; J7030